=== PATIENT | female | born 1940 | race Caucasian/White ===

== ENCOUNTER → 2017-03-21 | Outpatient (CLI) | payer MEDICARE, OTHER ==
[~2017-03-21] VITALS: Ht 152.4 cm; Wt 58.8 kg
[~2017-03-21] MED LIST: ASPI-1198 PO; CARB-104 PO; CARB1TAB53 PO; CARV12 PO; CITA10TA68 PO; DOCU250C14 PO; DSS100 PO; LAMO25 PO; LAMO25TA66 PO; LEVO75 PO; METF500T4 PO; MORP30 PO; PANT40TA25 PO; POLY17PO4 PO; PRAM0.258 PO; QUET100T PO; QUET25TA PO; QUET50TA PO; TRAZ-144 PO
[2017-03-21 10:39] VITALS: BP 123/67
== END | disposition home or self-care (01) ==
LOC: HBOWC 10:04
PROVIDERS: ATTEND Surgery Plastic and Reconstructive Surgery
DX: E11.621 Type 2 diabetes mellitus with foot ulcer (principal); L97.511 Non-pressure chronic ulcer of other part of right foot limited to breakdown of skin; F31.9 Bipolar disorder, unspecified; E78.5 Hyperlipidemia, unspecified; E03.9 Hypothyroidism, unspecified
CPT/HCPCS: 97597; G0463

== ENCOUNTER 2017-07-18 13:34 | Emergency (ER) | payer MEDICARE, OTHER ==
[~2017-07-18] VITALS: Ht 152.4 cm; Wt 59.1 kg
[~2017-07-18 13:34] MED LIST changes: -ASPI-1198 PO; -CARB1TAB53 PO; -CARV12 PO; -DOCU250C14 PO; -LAMO25TA66 PO; -LEVO75 PO; -PANT40TA25 PO; -QUET25TA PO; -QUET50TA PO
[2017-07-18] MEDS ORDERED: VITAD1000 PO (13:56)
[2017-07-18] MEDS ORDERED: OMEP20 PO (13:56)
[2017-07-18] MEDS ORDERED: LISI-661 PO (13:56)
[2017-07-18] MEDS ORDERED: LEVO50 PO (13:56)
[2017-07-18 14:29] LABS: GLUCOSE,POINT OF CARE 111 MG/DL (70-110)
[2017-07-18 16:42] VITALS: BP 131/72
== END 2017-07-18 17:07 | disposition home or self-care (01) ==
LOC: EMS 13:36
DX: S92.352A Displaced fracture of fifth metatarsal bone, left foot, initial encounter for closed fracture (principal); I10 Essential (primary) hypertension; G20 Parkinson's disease; E78.5 Hyperlipidemia, unspecified; M16.12 Unilateral primary osteoarthritis, left hip; Z91.041 Radiographic dye allergy status; Z88.8 Allergy status to other drugs, medicaments and biological substances; W18.39XA Other fall on same level, initial encounter; Y93.89 Activity, other specified; Y92.89 Other specified places as the place of occurrence of the external cause; Y99.8 Other external cause status
CPT/HCPCS: 82962; 99284

== ENCOUNTER 2017-07-30 14:04 | Emergency (ER) | payer MEDICARE, OTHER ==
[~2017-07-30] VITALS: Ht 165.1 cm; Wt 59.1 kg
[~2017-07-30 14:04] MED LIST changes: +LEVO50 PO; +LISI-661 PO; +OMEP20 PO; +VITAD1000 PO
[2017-07-30 17:58] VITALS: BP 159/75
== END 2017-07-30 18:40 | disposition home or self-care (01) ==
LOC: EMS 14:08
DX: S00.11XA Contusion of right eyelid and periocular area, initial encounter (principal); E11.9 Type 2 diabetes mellitus without complications; I10 Essential (primary) hypertension; Z88.1 Allergy status to other antibiotic agents; Z88.8 Allergy status to other drugs, medicaments and biological substances; W19.XXXA Unspecified fall, initial encounter; Y93.89 Activity, other specified; Y92.89 Other specified places as the place of occurrence of the external cause; Y99.8 Other external cause status
CPT/HCPCS: 70450; 70486; 72125; 82962; 99284

== ENCOUNTER → 2017-09-19 | Outpatient (CLI) | payer MEDICARE, OTHER ==
[~2017-09-19] MED LIST changes: -LISI-661 PO
== END | disposition home or self-care (01) ==
LOC: RADPV 10:43
PROVIDERS: ATTEND Specialist
DX: I65.23 Occlusion and stenosis of bilateral carotid arteries (principal)
CPT/HCPCS: 93880

== ENCOUNTER 2017-10-10 13:44 | Emergency (ER) | payer MEDICARE, OTHER ==
[~2017-10-10] VITALS: Ht 147.3 cm; Wt 56.8 kg
[~2017-10-10 13:44] MED LIST changes: +METF-444 PO; -METF500T4 PO
[2017-10-10 16:55] VITALS: BP 138/74
== END 2017-10-10 17:33 | disposition home or self-care (01) ==
LOC: EMS 13:45
DX: S09.90XA Unspecified injury of head, initial encounter (principal); I10 Essential (primary) hypertension; E11.9 Type 2 diabetes mellitus without complications; Z88.8 Allergy status to other drugs, medicaments and biological substances; W22.8XXA Striking against or struck by other objects, initial encounter; Y93.89 Activity, other specified; Y92.89 Other specified places as the place of occurrence of the external cause; Y99.8 Other external cause status
CPT/HCPCS: 70450; 99284

== ENCOUNTER 2017-10-15 17:48 | Emergency (ER) | payer MEDICARE, OTHER ==
[~2017-10-15] VITALS: Ht 147.3 cm; Wt 55.4 kg
[2017-10-15 18:07] LABS: GLUCOSE,POINT OF CARE 118 MG/DL (70-110)
[2017-10-15] MEDS ORDERED: KETOROLAC TROMETHAMINE 10 MG TABLET PO ONE (18:30)
[2017-10-15] MEDS ORDERED: METHOCARBAMOL 500 MG TABLET PO ONE (20:15)
[2017-10-15 20:33] VITALS: BP 150/79
== END 2017-10-15 20:35 | disposition home or self-care (01) ==
LOC: EMS 17:49
DX: S39.012A Strain of muscle, fascia and tendon of lower back, initial encounter (principal); S76.011A Strain of muscle, fascia and tendon of right hip, initial encounter; E11.9 Type 2 diabetes mellitus without complications; I10 Essential (primary) hypertension; Z88.1 Allergy status to other antibiotic agents; Z88.8 Allergy status to other drugs, medicaments and biological substances; X58.XXXA Exposure to other specified factors, initial encounter; Y93.89 Activity, other specified; Y92.89 Other specified places as the place of occurrence of the external cause; Y99.8 Other external cause status
CPT/HCPCS: 72100; 73502; 99284

== ENCOUNTER 2017-11-05 13:18 | Emergency (ER) | payer MEDICARE, OTHER ==
[~2017-11-05] VITALS: Ht 147.3 cm; Wt 53.6 kg
[2017-11-05 13:56] VITALS: BP 127/81
[2017-11-05] MEDS ORDERED: IBUPROFEN 600 MG TABLET PO ONE (14:45)
== END 2017-11-05 15:14 | disposition home or self-care (01) ==
LOC: EMS 13:18
DX: M54.41 Lumbago with sciatica, right side (principal); G89.29 Other chronic pain; M19.90 Unspecified osteoarthritis, unspecified site; E11.9 Type 2 diabetes mellitus without complications; I10 Essential (primary) hypertension; Z88.1 Allergy status to other antibiotic agents; Z88.8 Allergy status to other drugs, medicaments and biological substances
CPT/HCPCS: 99283

== ENCOUNTER 2017-11-10 20:43 | Inpatient (IN) | payer MEDICARE, OTHER ==
[~2017-11-10] VITALS: Ht 147.3 cm; Wt 51.7 kg
[2017-11-10 21:07] LABS: GLUCOSE,POINT OF CARE 130 MG/DL (70-110)
[2017-11-10] MEDS ORDERED: GABA-529 PO (21:09)
[2017-11-10] MEDS ORDERED: MAGNESIUM HYDROXIDE SUSPENSION 30 ML UDCUP PO PRN (22:30)
[2017-11-10] MEDS ORDERED: ACETAMINOPHEN 325 MG TABLET PO PRN (22:30)
[2017-11-10] MEDS ORDERED: INSULIN LISPRO 100 UNITS/ML SQ PRN (22:45)
[2017-11-10] MEDS ORDERED: DEXTROSE 50%-WATER 25 GM/50 ML SYRINGE IVP PRN (22:45)
[2017-11-10 22:58] LABS: BASOPHILS % (AUTO) 0.5 % (0.0-2.0); EOSINOPHILS % (AUTO) 1.2 % (1.0-6.0); HEMATOCRIT 32.7 % (36-46); HEMOGLOBIN 10.4 g/dL (12.0-16.0); LYMPHOCYTES # (AUTO) 1.9 K/uL (1.0-4.8); MEAN CORPUSCULAR HGB CONC 31.9 G/dL (31.0-37.0); MEAN CORPUSCULAR VOLUME 78 fL (80-100); MONOCYTES # (AUTO) 0.3 K/uL (0.1-1.0); MONOCYTES % (AUTO) 4.5 % (2.0-9.0); NEUTROPHILS # (AUTO) 4.1 K/uL (1.8-7.7); NEUTROPHILS % (AUTO) 63.8 % (40.0-70.0); PLATELET COUNT (AUTO) 284 K/uL (150-450); RED BLOOD CELL COUNT(AUTO) 4.18 MIL/uL (4.00-5.20); RED CELL DISTRIBUTION WIDTH 23.6 % (11.5-14.5)
[2017-11-10] MEDS ORDERED: VANCOMYCIN HCL 1 GM/D5% WATER 200 ML IV ONE (23:00)
[2017-11-10 23:16] LABS: ANION GAP 9 mmol/L (8-16); CALCIUM, TOTAL 8.9 mg/dL (8.8-10.5); CARBON DIOXIDE 27 mmol/L (22-29); CHLORIDE 104 mmol/L (98-107); CREATININE 0.74 mg/dL (0.60-1.30); GLOMERULAR FILTR. RATE CALC > 60 mL/min (>60); GLUCOSE,RANDOM 136 mg/dL (70-110); POTASSIUM 4.2 mmol/L (3.5-5.1); SODIUM SERUM 140 mmol/L (136-145); UREA NITROGEN, BLOOD 17 mg/dL (7-18)
[2017-11-10 23:20] LABS: ALANINE AMINOTRANSFERASE 12 U/L (12-78); ALBUMIN 3.5 g/dL (3.4-5.0); ALKALINE PHOSPHATASE 88 U/L (46-116); ASPARTATE AMINOTRANSFERASE 10 U/L (15-37); BILIRUBIN,TOTAL 0.3 mg/dL (0.1-1.0); TOTAL PROTEIN, SERUM 6.9 g/dL (6.4-8.2)
[2017-11-10 23:22] LABS: LACTIC ACID 1.8 mmol/L (0.4-2.0)
[2017-11-11 00:11] LABS: ERYTHROCYTE SEDIMENTATION RATE 11 MM/HR (0-20)
[2017-11-11 00:30] VITALS: BP 152/76
[2017-11-11] MEDS ORDERED: FERR-89 PO (02:19)
[2017-11-11] MEDS ORDERED: CYAN200018 PO (02:21)
[2017-11-11 05:13] VITALS: BP 145/72
[2017-11-11] MEDS: CARBIDOPA/LEVODOPA 25-100 MG ER TABLET PO SCH ×5 (06:00→23:29)
[2017-11-11 07:13] LABS: ANION GAP 6 mmol/L (8-16); CALCIUM, TOTAL 8.9 mg/dL (8.8-10.5); CARBON DIOXIDE 29 mmol/L (22-29); CHLORIDE 104 mmol/L (98-107); CREATININE 0.64 mg/dL (0.60-1.30); GLOMERULAR FILTR. RATE CALC > 60 mL/min (>60); GLUCOSE,RANDOM 113 mg/dL (70-110); POTASSIUM 4.3 mmol/L (3.5-5.1); SODIUM SERUM 139 mmol/L (136-145); UREA NITROGEN, BLOOD 15 mg/dL (7-18)
[2017-11-11 08:12] VITALS: BP 125/61
[2017-11-11] MEDS: OxyCODONE HCL/ACETAMINOPHEN 5-325 MG TABLET PO PRN ×2 (08:12→21:29)
[2017-11-11 08:36] LABS: APPEARANCE,URINE CLEAR (CLEAR); BILIRUBIN,URINE NEGATIVE (NEGATIVE); GLUCOSE, URINE (UA) NEGATIVE (NEGATIVE); KETONES,URINE NEGATIVE (NEGATIVE); LEUKOCYTE ESTERASE ,URINE NEGATIVE (NEGATIVE); NITRATE,URINE NEGATIVE (NEGATIVE); OCCULT BLOOD,URINE NEGATIVE (NEGATIVE); PROTEIN,URINE NEGATIVE (NEGATIVE); UROBILINOGEN,URINE 0.2 mg/dL (<=1.0)
[2017-11-11 08:41] LABS: THYROID STIMULATING HORMONE 10.94 uIU/mL (0.36-3.74)
[2017-11-11 08:42] LABS: BACTERIA,URINE Rare /HPF (None Seen); WBC,URINE 0-2 /HPF (0-5)
[2017-11-11 08:43] LABS: RBC,URINE 0-2 /HPF (0-2)
[2017-11-11 08:44] LABS: SQUAMOUS EPITHELIAL CELL,UR Rare /LPF (None Seen)
[2017-11-11] MEDS: DOCUSATE SODIUM 100 MG CAPSULE PO SCH ×2 (09:45→20:33)
[2017-11-11] MEDS: CITALOPRAM HYDROBROMIDE 10 MG TABLET PO SCH (09:45)
[2017-11-11] MEDS: ASPIRIN 81 MG CHEWABLE TABLET PO SCH (09:46)
[2017-11-11] MEDS: PANTOPRAZOLE SODIUM 40 MG DR TABLET PO SCH (09:46)
[2017-11-11] MEDS: PRAMIPEXOLE DI-HCL 0.25 MG TABLET PO SCH ×4 (09:46→20:33)
[2017-11-11] MEDS: VANCOMYCIN HCL 750 MG in DEXTROSE 5%-WATER 250 ML IV SCH ×2 (09:48→20:33)
[2017-11-11] MEDS: HEPARIN SODIUM,PORCINE 5,000 UNITS/ML VIAL SQ SCH ×2 (09:49→20:34)
[2017-11-11] MEDS: DICLOFENAC SODIUM 1% 100 GM GEL [2GM] TP PRN (09:57)
[2017-11-11 12:34] LABS: GLUCOMETER DEV NAME(LOC) 6N 1E; GLUCOSE,POINT OF CARE 113 MG/DL (70-110)
[2017-11-11 15:58] VITALS: BP 143/82
[2017-11-11] MEDS: MetFORMIN HCL 500 MG TABLET PO SCH (18:06)
[2017-11-11 19:29] VITALS: BP 143/77
[2017-11-11] MEDS ORDERED: SODIUM CHLORIDE 0.9% 250 ML IV ONE (20:38)
[2017-11-11 23:38] VITALS: BP 144/65
[2017-11-12] MEDS: OxyCODONE HCL/ACETAMINOPHEN 5-325 MG TABLET PO PRN (03:50)
[2017-11-12] MEDS: QUEtiapine FUMARATE 100 MG TABLET PO SCH ×2 (04:15→08:34)
[2017-11-12] MEDS ORDERED: GABAPENTIN 100 MG CAPSULE PO SCH (04:15)
[2017-11-12 04:16] VITALS: BP 154/88
[2017-11-12] MEDS: CARBIDOPA/LEVODOPA 25-100 MG ER TABLET PO SCH ×2 (05:26→12:08)
[2017-11-12 06:28] LABS: GLUCOMETER DEV NAME(LOC) 6N 2D; GLUCOSE,POINT OF CARE 95 MG/DL (70-110)
[2017-11-12] MEDS ORDERED: LEVOTHYROXINE SODIUM 50 MCG TABLET PO SCH (06:30)
[2017-11-12 06:58] LABS: ANION GAP 8 mmol/L (8-16); CALCIUM, TOTAL 8.6 mg/dL (8.8-10.5); CARBON DIOXIDE 28 mmol/L (22-29); CHLORIDE 102 mmol/L (98-107); CREATININE 0.56 mg/dL (0.60-1.30); GLOMERULAR FILTR. RATE CALC > 60 mL/min (>60); GLUCOSE,RANDOM 98 mg/dL (70-110); POTASSIUM 3.8 mmol/L (3.5-5.1); SODIUM SERUM 138 mmol/L (136-145); UREA NITROGEN, BLOOD 17 mg/dL (7-18); VANCOMYCIN,RANDOM 14.5 mcg/mL (25.0-50.0)
[2017-11-12 07:42] VITALS: BP 145/76
[2017-11-12] MEDS ORDERED: VANCOMYCIN HCL 750 MG in DEXTROSE 5%-WATER 250 ML IV SCH (08:00)
[2017-11-12] MEDS: PANTOPRAZOLE SODIUM 40 MG DR TABLET PO SCH (08:32)
[2017-11-12] MEDS: DOCUSATE SODIUM 100 MG CAPSULE PO SCH (08:32)
[2017-11-12] MEDS: ASPIRIN 81 MG CHEWABLE TABLET PO SCH (08:33)
[2017-11-12] MEDS: PRAMIPEXOLE DI-HCL 0.25 MG TABLET PO SCH ×2 (08:33→12:08)
[2017-11-12] MEDS: MetFORMIN HCL 500 MG TABLET PO SCH (08:33)
[2017-11-12] MEDS: CITALOPRAM HYDROBROMIDE 10 MG TABLET PO SCH (08:34)
[2017-11-12] MEDS: HEPARIN SODIUM,PORCINE 5,000 UNITS/ML VIAL SQ SCH (08:37)
[2017-11-12] MEDS: DICLOFENAC SODIUM 1% 100 GM GEL [2GM] TP PRN (08:42)
[2017-11-12] MEDS ORDERED: LamoTRIgine 25 MG TABLET PO SCH (09:00)
[2017-11-12 12:03] VITALS: BP 154/76
[2017-11-12] MEDS ORDERED: SULF1TAB42 PO (13:21)
[2017-11-12] MEDS ORDERED: FERR-89 PO (19:06)
[2017-11-12] MEDS ORDERED: CYAN100 PO (19:06)
[2017-11-12] MEDS ORDERED: TraZODone HCL 50 MG TABLET PO SCH (21:00)
== END 2017-11-12 14:31 | disposition home or self-care (01) | DRG 603 ==
LOC: EMS 20:44 → 6N 22:34
PROVIDERS: ADMIT Internal Medicine; ATTEND Internal Medicine
DX: L03.115 Cellulitis of right lower limb (principal); F11.20 Opioid dependence, uncomplicated; I10 Essential (primary) hypertension; E11.40 Type 2 diabetes mellitus with diabetic neuropathy, unspecified; G89.29 Other chronic pain; E03.9 Hypothyroidism, unspecified; E78.5 Hyperlipidemia, unspecified; G20 Parkinson's disease; M19.90 Unspecified osteoarthritis, unspecified site; Z88.8 Allergy status to other drugs, medicaments and biological substances; Z88.1 Allergy status to other antibiotic agents; Z79.84 Long term (current) use of oral hypoglycemic drugs; Z79.899 Other long term (current) drug therapy
CPT/HCPCS: 72148; 73718; 83605; 84443; 85651; 87040; 97162; 99285; J1644; J3370; J7050; J7060

== ENCOUNTER 2017-11-12 18:10 | Emergency (ER) | payer MEDICARE, OTHER ==
[~2017-11-12] VITALS: Ht 147.3 cm; Wt 53.6 kg
[~2017-11-12 18:10] MED LIST changes: +CYAN200018 PO; +FERR-89 PO; +GABA-529 PO; +SULF1TAB42 PO
[2017-11-12 18:52] LABS: BASOPHILS % (AUTO) 0.2 % (0.0-2.0); EOSINOPHILS % (AUTO) 0.3 % (1.0-6.0); HEMATOCRIT 36.1 % (36-46); HEMOGLOBIN 11.5 g/dL (12.0-16.0); LYMPHOCYTES # (AUTO) 1.2 K/uL (1.0-4.8); MEAN CORPUSCULAR HEMOGLOBIN 25.2 pg (26.0-34.0); MEAN CORPUSCULAR VOLUME 79 fL (80-100); MONOCYTES # (AUTO) 0.3 K/uL (0.1-1.0); MONOCYTES % (AUTO) 3.6 % (2.0-9.0); NEUTROPHILS # (AUTO) 6.5 K/uL (1.8-7.7); NEUTROPHILS % (AUTO) 80.9 % (40.0-70.0); PLATELET COUNT (AUTO) 317 K/uL (150-450); RED BLOOD CELL COUNT(AUTO) 4.57 MIL/uL (4.00-5.20); RED CELL DISTRIBUTION WIDTH 24.1 % (11.5-14.5)
[2017-11-12 18:57] LABS: ANION GAP 8 mmol/L (8-16); CALCIUM, TOTAL 9.3 mg/dL (8.8-10.5); CARBON DIOXIDE 29 mmol/L (22-29); CHLORIDE 100 mmol/L (98-107); CREATININE 0.59 mg/dL (0.60-1.30); GLOMERULAR FILTR. RATE CALC > 60 mL/min (>60); GLUCOSE,RANDOM 152 mg/dL (70-110); POTASSIUM 3.9 mmol/L (3.5-5.1); SODIUM SERUM 137 mmol/L (136-145); UREA NITROGEN, BLOOD 17 mg/dL (7-18)
[2017-11-12 19:03] LABS: ALANINE AMINOTRANSFERASE 18 U/L (12-78); ALBUMIN 3.9 g/dL (3.4-5.0); ALKALINE PHOSPHATASE 85 U/L (46-116); ASPARTATE AMINOTRANSFERASE 11 U/L (15-37); BILIRUBIN,TOTAL 0.3 mg/dL (0.1-1.0); TOTAL PROTEIN, SERUM 7.5 g/dL (6.4-8.2)
[2017-11-12] MEDS ORDERED: CYAN100 PO (19:06)
[2017-11-12] MEDS ORDERED: FERR-89 PO (19:06)
[2017-11-12 19:13] LABS: PLATELET MORPHOLOGY COMMENT NORMAL
[2017-11-12 20:25] VITALS: BP 152/72
[2017-11-15 12:53] LABS: GLUCOSE,POINT OF CARE 156 MG/DL (70-110)
== END 2017-11-12 20:39 | disposition home or self-care (01) ==
LOC: EMS 18:12
DX: G89.29 Other chronic pain (principal); R10.9 Unspecified abdominal pain; R07.89 Other chest pain; E11.9 Type 2 diabetes mellitus without complications; I10 Essential (primary) hypertension; Z88.1 Allergy status to other antibiotic agents; Z88.8 Allergy status to other drugs, medicaments and biological substances
CPT/HCPCS: 93005; 99285

== ENCOUNTER 2017-11-24 21:00 | Emergency (ER) | payer MEDICARE, OTHER ==
[~2017-11-24] VITALS: Ht 152.4 cm; Wt 63.6 kg
[~2017-11-24 21:00] MED LIST changes: +CYAN100 PO; -CYAN200018 PO; -GABA-529 PO; -LEVO50 PO; -POLY17PO4 PO; -SULF1TAB42 PO
[2017-11-24] MEDS ORDERED: PROMETHAZINE HCL/CODEINE 6.25-10MG/5ML SYRUP UDCUP PO ONE (22:30)
[2017-11-24 22:38] LABS: GLUCOSE,POINT OF CARE 89 MG/DL (70-110)
[2017-11-24 23:07] VITALS: BP 120/78
== END 2017-11-24 23:12 | disposition home or self-care (01) ==
LOC: EMS 21:05
DX: J06.9 Acute upper respiratory infection, unspecified (principal); I10 Essential (primary) hypertension; E11.9 Type 2 diabetes mellitus without complications; F31.9 Bipolar disorder, unspecified; M19.90 Unspecified osteoarthritis, unspecified site; G20 Parkinson's disease; E78.5 Hyperlipidemia, unspecified; Z79.899 Other long term (current) drug therapy; Z88.1 Allergy status to other antibiotic agents
CPT/HCPCS: 82948; 93005; 99283

== ENCOUNTER 2017-12-12 19:39 | Emergency (ER) | payer MEDICARE, OTHER ==
[~2017-12-12] VITALS: Ht 147.3 cm; Wt 53.2 kg
[~2017-12-12 19:39] MED LIST changes: +AMPI2VIA9 IVPB; +ASPI-1182 PO; +GABA-529 PO; +MIRALAX PO; -TRAZ-144 PO; +TRAZ-184 PO
[2017-12-12 20:18] LABS: GLUCOSE,POINT OF CARE 233 MG/DL (70-110)
[2017-12-12] MEDS ORDERED: MORPHINE SULFATE 30 MG ER TABLET PO ONE (22:00)
[2017-12-12 22:05] VITALS: BP 141/70
== END 2017-12-12 22:32 | disposition home or self-care (01) ==
LOC: EMS 19:45
DX: G89.29 Other chronic pain (principal); E11.9 Type 2 diabetes mellitus without complications; I10 Essential (primary) hypertension; Z76.0 Encounter for issue of repeat prescription; Z88.1 Allergy status to other antibiotic agents; Z88.8 Allergy status to other drugs, medicaments and biological substances
CPT/HCPCS: 99283